=== PATIENT | female | born 1945 | race Caucasian/White ===

== ENCOUNTER 2018-12-01 07:49 | Inpatient (IN) | payer MEDICARE, OTHER ==
[~2018-12-01] VITALS: Ht 165.1 cm; Wt 50.8 kg
--- NOTE | ~2018-12-01 | OR ---
[facility] [address], [place] [address] Draft DATE OF OPERATION: 12/08/2018 SURGEON: Henny Gonzáles MD CHAPLAIN: Francis Rossi MD. PREOPERATIVE DIAGNOSIS: Cystocele and rectocele. POSTOPERATIVE DIAGNOSIS: Cystocele and rectocele with enterocele. PROCEDURES: A and P repair, enterocele repair, cystoscopy, sacrospinous cuff suspension. ANESTHESIA: General ET. ESTIMATED BLOOD LOSS: 200 mL. DRAINS: Girard catheter. PACKS: Vaginal. INDICATIONS AND FINDINGS: The patient is a 73-year-old female, 3, para 3, status post prior JENNA BSO, who has been having increasing issues with vaginal bulging and was found to have a cystocele as well as a rectocele. She was counseled and she desired surgical correction. At the time of surgery, she had a grade 2 cystocele and grade 2 rectocele. She had good perineal length. At the time of the cystocele repair, however, she was found to have also an enterocele. DESCRIPTION OF PROCEDURE: The patient was prepped and draped in the dorsal lithotomy position. A weighted speculum was placed and the anterior wall of the vagina was evaluated and Allis was replaced in the midline and an incision was made with a knife longitudinally. The PATIENT NAME: ALEXANDRE DUQUE OPERATIVE REPORT DATE OF : 41 REPORT #: [id number] PHYSICIAN: HENNY GONZÁLES MD PCP: YOANA MCKEON PA-C REPORT IS CONFIDENTIAL AND NOT TO BE RELEASED WITHOUT AUTHORIZATION [facility] [address], [place] [address] Draft vaginal mucosa was from the underlying tissue with a combination of blunt and sharp dissection. During this dissection, however, an enterocele sac was entered. An attempt was made to free the edges of the enterocele sac as much as possible. There did not appear to be any evidence of any bladder injury during that time. After freeing the enterocele sac as much as possible, this was closed with a pursestring suture of 2-0 chromic. The defect in the pubovesical fascia was reapproximated with interrupted sutures of 0 Vicryl. The vaginal mucosa was then trimmed a fair amount and the vaginal mucosa was then closed with a running suture of 2-0 Vicryl. Following this, the Girard catheter was removed and the cystoscope was used to evaluate the bladder. She had received IV fluorescein. The bladder was filled and no defects were noted. There was free spill of urine from both of the ureteral orifices. Following this, the bladder was drained and cystoscopy complete. The Girard catheter was replaced. Following this, the rectocele repair was begun. A triangle of tissue was removed from the perineal body with the knife. The vaginal mucosa was then undermined and incised in the midline near the apparent apex of the vagina. It was difficult to identify the cuff at this point. Following this, the vaginal mucosa was from the underlying tissue with a combination of blunt and sharp dissection. This was also carried out to the ischial spines on each side. The [employer] device was used to deploy a 0 Vicryl suture into the midportion of the sacrospinous ligament using a 0 Kistler-Irvin suture. This was left for use later. This was done bilaterally. Following this, this Kistler-Irvin suture was sutured on the one end to the apparent vaginal cuff. This was done bilaterally and these were tied down bilaterally, anchoring the top of the vagina to the sacrospinous ligaments on each side. Following this, interrupted sutures were placed in the perirectal fascial type tissue reapproximating that defect. Following this, a rectal examination was done and there were no sutures compromising the rectal lumen. FloSeal was then injected around the sacrospinous ligaments on each side to aid in hemostasis. The vaginal mucosa was then trimmed a small amount. The vaginal mucosa was closed with a running suture of 2-0 Vicryl. This was done from the apex of the vagina to the hymenal ring. The perineal body was reapproximated with interrupted sutures of 2-0 Vicryl. The posterior fourchette was recreated with the 2-0 Vicryl as well. The skin of the perineum was closed with subcuticular sutures of 3-0 Vicryl. Inspection of the vault showed good length and caliber. There was good hemostasis noted. The vaginal canal was then packed with Premarin coated gauze. All sponge and needle counts were correct. She tolerated procedure well and was taken to the recovery room in good condition. Henny Gonzáles MD PJW/MODL PATIENT NAME: ALEXANDRE DUQUE OPERATIVE REPORT DATE OF : 41 REPORT #: [id number] PHYSICIAN: HENNY GONZÁLES MD PCP: YOANA MCKEON PA-C REPORT IS CONFIDENTIAL AND NOT TO BE RELEASED WITHOUT AUTHORIZATION [address], [place] [address] Draft /[id number] cc: SAURAV Brya MD Copies: YOANA MCKEON PA-C, MICHAEL JOHN MD ~ PATIENT NAME: ALEXANDRE DUQUE OPERATIVE REPORT DATE OF : 41 REPORT #: [id number] PHYSICIAN: HENNY GONZÁLES MD PCP: YOANA MCKEON PA-C REPORT IS CONFIDENTIAL AND NOT TO BE RELEASED WITHOUT AUTHORIZATION
[~2018-12-01 07:49] MED LIST: ASPIR-LOW81 MG PO; BACITRACIN15 GM TP; BENADRYL25 MG PO; ENALAPRIL MALEA20 MG PO; EPIPEN 2-P0.3 MG/0.3 IM; FLAXSEED OIL1000 MG PO; MEVACOR40 MG PO; NORCO 5-325 TA1 EACH PO; OGEN0.75 MG PO; PREDNISONE20 MG PO; PREMARIN0.3 MG PO; PREMARIN0.625 MG PO; VISION VITAMIN1 EAC1 PO; VITAMIN D1000 UNI1 PO
[2018-12-02] MEDS ORDERED: ESTRACE0.5 MG PO (14:35)
--- NOTE | 2018-12-08 09:23 | NUR ---
12/08/18 0923 Danii Hyman 0911 PT ARRIVED IN PACU NON RESPONSIVE TO VERBAL/TACTILE STIMULI. OPA IN PLACE. 09 AT BEDSIDE. PT SLEEPING WITH OPA IN PLACE.
--- NOTE | 2018-12-08 10:00 | NUR ---
PT ARRIVED FROM PACU AT 0955. PT DROWSY BUT ALERT AND ORIENTED. PT ON ROOM AIR, LUNG SOUNSD CLEAR, DENIES SOB. PT WITH AREVALO CATH IN PLACE, DRAINING BRIGHT YELLOW URINE. PT WITH PERIPAD IN PLACE, SMALL AMOUNT OF BLOODY DRAINAGE, VAGINAL PACKING IN PLACE. PT DENIES PAIN. CMS INTACT, SCDS IN PLACE. DISCUSSED PLAN OF CARE FOR THE DAY AND WHAT TO EXPECT FOR RECOVERY. PT DENIES OTHER NEEDS AT THIS TIME. SPOUSE AT BEDSIDE.
--- NOTE | 2018-12-08 10:30 | NUR ---
PT COMPLAINT OF PAIN. PT DESCRIBING PAIN AN UNCOMFORTABLE PRESSURE IN HER VAGINA. DISCUSSED THAT VAGINAL PACKING CAN BE UNCOMFORTABLE, ICE PACK PROVIDED, HOB LOWERED TO DECREASE PRESSURE. PT DENIES OTHER NEEDS AT THIS TIME.
--- NOTE | 2018-12-08 11:05 | NUR ---
PT RESTING IN BED. PT RATING PAIN BETTER AFTER ICE PACK. VSS. PT PROVIDED ICE WATER, DENIES NAUSEA AT THIS TIME, DISCUSSED TO CALL RN IF BECOMING NAUSEATED. PT DENIES OTHER NEEDS AT THIS TIME.
--- NOTE | 2018-12-08 12:17 | NUR ---
PT RESTING IN BED. PT COMPLAINT OF NAUSEA, GIVEN 4MG IV ZOFRAN PER ORDER. VSS. PT RATING PAIN TOLERABLE 3/10 TO VAGINA. PERIPAD ASSESSED, WITHOUT NEW DRAINAGE. AREVALO CATH DRAINING QS. PT TOLERATING SIPS OF WATER, NOT INTERESTED IN CLEAR IQUID TRAY, PROVIDED SALTINE CRACKERS. PT DENIES OTHER NEEDS AT THIS TIME.
--- NOTE | 2018-12-08 13:04 | NUR ---
ASSESSMENT DONE. PATIENT RESTING IN BED, VSS, ON ROOM AIR. MARKIE PAD IN PLACE WITH SCAN RED DRAINAGE, AREVALO CATHETER INTACT WITH BRIGHT YELLOW URINE. PATIENT RATES MARKIE PAIN 5/10, PLAN TO GIVE MEDICATION FOR THIS. SCD'S ARE ON. IVF INFUSING TO INTACT IV IN LEFT WRIST. PATIENT IS TOLERATING SIPS OF CLEARS.
--- NOTE | 2018-12-08 14:50 | NUR ---
PT GIVEN SCHEDULED MOTRIN FOR CRAMPING.
--- NOTE | 2018-12-08 14:59 | NUR ---
PATIENT TOLERATING CLEAR LIQUIDS AND CRACKERS. IBUPROFEN GIVEN AFTER PATIENT WAS TAKING PO.
--- NOTE | 2018-12-08 16:57 | NUR ---
PATIENT GIVEN 2MG OF IV MORPHINE FOR 5/10 MARKIE PAIN. PATIENT DOES NOT HAVE AN APPETITE CURRENTLY. DISCUSSED WITH PATIENT THE POSSIBILITY OF SITTING ON THE EDGE OF THE BED TONIGHT, PLAN TO SEE IF PAIN MEDICATIONS MAKE PATIENT MORE COMFORTABLE. NO NAUSEA AT THIS TIME.
--- NOTE | 2018-12-08 18:43 | NUR ---
PATIENT SITTING ON SIDE OF BED, BECAME NAUSEATED, 4MG OF IV ZOFRAN GIVEN.
--- NOTE | 2018-12-08 20:54 | NUR ---
had 200cc of undigested food emesis. medicated with Phenergan 12.5mg IV. Cooperative with assessment.Very minimum ss vaginal drainage noted. vag pack inplace, f/c patent, draining clear yellow urine. Declines Motrin at this time, as her stomach does not feel good, states, will offer later, crackers at bedside, declines Jello due to food allergies. Repositioned in bed. Copx in place sats 94% on room air. SCDS in place, slow to respond but answers appropriately. Fresh water and call light at bedside, Hob elevated at her requests.
--- NOTE | 2018-12-08 22:43 | NUR ---
AWAKES EASILY, CONTINUES TO DECLINE MOTRIN "I HAVE NOT BEEN ABLE TO EAT ANYTHING, I SHOULD NOT HAVE IT, ISABEL OK". NO FURTHER EMESIS, ON ROOM AIR, VAG PACK INPLACE, SCANT AMOUNT OF SS DRAINGE, F/C IN PLACE. SCDS INPLACE, FLUID AND CALL LIGHT AT BEDSIDE. STATES COMFORTABLE
--- NOTE | 2018-12-09 00:34 | NUR ---
Reesting, eyes closed, no resp distress. IVF infusing, f/c patent. No further c/o n/v, Fluids and call light at bedside, scds inplace
--- NOTE | 2018-12-09 02:42 | NUR ---
Up to ambulate hallways. ambulated to safety doors and back to room, tolerated well, f/c patent. Medicated with [place] 1 tab vaginal poin. Tolerating crackers well, no further episodes of n/v. Fresh water given. Back to bed. tolerated well, scant amount of vaginal ss drainage noted in pad, changed. scds back on. IVf infusing w/o problems, call light at bedside
--- NOTE | 2018-12-09 04:55 | NUR ---
PT CURRENTLY RESTING, AWAKES EASILY. ON ROOM AIR. VAGINAL PACKING IN PLACE. SCANT AMOUNT OF LIGHT RED VAGINAL DRAINAGE NOTED. C/O ABD PAIN AND CRAMPING X1, WAS MEDICATGED WITH NORCO X1, EFFECTIVE. HAD EMESIS X1 WAS MEDICATED WITH PHENERGAN, NO FURTHER EMESIS. F/C PATENT, PT AWARE IT WILL BE DC'D THIS AM. PT WALKED OUTSIDE OF ROOM THIS SHIFT, TOLERATED WELL, 1PA. PT DIET IS AAT, TOLERATING CLEAR LIQUIDS AND CRACKERS, PT HAS MANY FOOD ALLERGIES AND IS VERY CAUTIONS ABOUT HER DIET. SCDS IN PLACE, IVF INFUSING W/O PROBLEMS. CALL LIGHT AND FLUIDS AT BEDSIDE
--- NOTE | 2018-12-09 06:05 | NUR ---
f/c dc'd at 0533. pt aware of needing to call nursing staff when she feels the urge to void and of need to do residual bladder scanning after each void, stated understanding. Vaginal pack inplace, very scant amount of light red vaginal discharge present. Tolerating crackers and water well. No further c/o n/v. had declined motrin earlier, took at this time w/o problems. Call lihgt and fluids at bedside
--- NOTE | 2018-12-09 07:20 | NUR ---
PT AAO IN ROOM. SBATO BATHROOM TO ATTEMPT TO VOID. PT UNSUCCESSFUL. DENIES PAIN. LR AT 125ML/HR INFUSING. DENIES NAUSEA/VOMITTING. CALL LIGHT IN REACH.
--- NOTE | 2018-12-09 09:30 | NUR ---
PT OUT TO AMBULATE IN DANIELLE BEFORE ATTEMPTING TO VOID.
--- NOTE | 2018-12-09 09:30 | NUR ---
ASSESSMENT COMPLETE. VISITING AT BEDSIDE. PATIENT VOIDED 300 ML WITH A POST VOID RESIDUAL OF 49 ML. PATIENT HAS SCANT AMOUNT OF OLD DISCHARGE ON PERIPAD. PATIENT SALINE LOCKED PER MD ORDER. PATIENT BOWEL SOUNDS HYPOACTIVE IN ALL 4 QUADRANTS, FLATULUS PASSED. LUNG SOUNDS CLEAR, HEART REGULAR. CALL LIGHT WITHIN REACH. PATIENT DENIES ANY N/V OR PAIN.
--- NOTE | 2018-12-09 12:07 | NUR ---
PATIENT SITTING UP IN BED EATING LUNCH. FAMILY VISITING IN ROOM WITH PATIENT. PATIENT DENIES ANY FURTHER NEEDS AT THIS TIME, CALL LIGHT WITHIN REACH.
--- NOTE | 2018-12-09 12:22 | NUR ---
PATIENT AMBULATED TO TOILET WITH 1 PERSON SBA. PATIENT VOIDED 300 MLS. POST RESIDUAL DOCUMENTED AT 481 MLS.
--- NOTE | 2018-12-09 13:40 | NUR ---
PATIENT AMBULATED TO TOILET AND VOIDED 500 MLS WITH A POST RESIDUAL VOID OF [address] CLARK CALLED AND UPDATED ON PATIENT'S POST VOID RESIDUALS. WILL CONTINUE TO MONITOR.
--- NOTE | 2018-12-09 16:24 | NUR ---
PATIENT AMBULATED TO TOILET, VOIDED 500 MLS. POST RESIDUAL VOID OF 146 MLS. PATIENT STATES SHE DOES NOT HAVE PAIN AFTER LAST PAIN MEDICATION. NEW PERIPAD APPLIED. PATIENT RESTING IN BED, CALL LIGHT WITHIN REACH.
--- NOTE | 2018-12-09 18:41 | NUR ---
POST OP PATIENT. MET ALL CRITERIA FOR D/C EXCEPT FOR POST VOID RESIDUALS. PLAN TO SPEND ONE MORE NIGHT. PAIN CONTROLLED WITH SCHEDULED NORCO AND MOTRIN. SCANT AMOUNT OF DRAINAGE, BOWEL TONES ACTIVE, PASSING FLATULENCE. NO BOWEL MOVEMENT TODAY, NO N/V. AMBULATED IN HALLS MULTIPLE TIMES. FLUIDS D/C, SALINE LOCKED, GOOD PO INTAKE.
--- NOTE | 2018-12-09 21:35 | NUR ---
coop with assessment, c/o 10 vaginal pain, scant amount of brown red vaginal drainage noted, Pt aware of continuation of residual bladder scanning after each void. Pt up to br at 1999, did not void, will get her up in 20 minutes at her requests to see if she can void, instructed on need to void at least every 2 hours, stated understanding. Medicated with scheduled Motrin. Call light and fluids at bedside, no c/o n/v this shift
--- NOTE | 2018-12-09 22:16 | NUR ---
PATIENT AMBULAYED TO THE BATHROOM WITH 1 P ASSIST,W/4WW. PATIENT VOIDED 200 CC BLADDER SCANED WAS ONLY 13 MG.
--- NOTE | 2018-12-09 23:22 | NUR ---
resting, eyes closed, no resp distress, on room air, call light and fluids at bedside, no c/o n/v this shift
--- NOTE | 2018-12-09 23:30 | NUR ---
Resting, no distress, wearing home CPAP. IVF infusing w/o problems. no c/o No further c/o n/v. Using call light appropriately. call light and fluids at bedside
--- NOTE | 2018-12-10 00:45 | NUR ---
Pt ambulating hallways using FWW, up to br, voided 150cc clear urine, bladder scanner showed 278cc residual. Pt instructed to void again after her walk and will be bladder scanned again, stated understanding
--- NOTE | 2018-12-10 04:43 | NUR ---
Awake at this time. COntinues to have over 100cc retaining urine when bladder scanner after each void this shift, Walked hallways x1 using walker. Tolerating diet well, No n/v this shift. No c/o pain, gets medicated with Motrin tid/scheduled with good pain relief. Scant amount of brown vaginal discharge noted in osmar pad. Pt does own care. Call light and fluids at bedside. Declined Heparin SQ earlier in shift
--- NOTE | 2018-12-10 07:45 | NUR ---
RECEIVED REPORT FROM RN. PATIENT SITTING IN BED WATCHING TV. PATIENT REPORTS SHE SLEPT "OKAY" AND IS NOT IN PAIN. ALERT AND ORIENTED. PATIENT IS SALINE LOCKED. WENT OVER PLAN OF CARE WITH PATIENT TO CONTROL PAIN, AMBULATE HALLS, AND WORK TOWARDS DECREASING POST VOID RESIDUALS. BREAKFAST ORDERED. PATIENT DENIES ANY FURTHER NEEDS AT THIS TIME. CALL LIGHT WITHIN REACH.
--- NOTE | 2018-12-10 08:10 | NUR ---
DR. CLARK IN ROOM WITH PATIENT DISCUSSING PLAN OF CARE. POST RESIDUAL VOIDS CONTINUED THROUGH THE NIGHT. PATIENT ATTEMPTED TO VOID UNSUCCESSFULLY, BLADDER SCAN SHOWED 550 MLS RETAINED. MD ORDERED AREVALO CATHETHER TO BE PLACED. PLAN IS TO DISCHARGE PATIENT WITH AREVALO AND LEG BACK. DISCUSSED IMPORTANCE OF MAINTAINING CONTROL OVER HER PAIN IN ORDER TO AMBULATE MORE FREQUENTLY, WHICH WILL HELP HER TO VOID. PATIENT STATES SHE IS HAVING NAUSEA AND A ZOFRAN WAS PROVIDED, WELL CRACKERS. PATIENT DENIES ANY FURTHER NEEDS, CALL LIGHT WITHIN REACH.
--- NOTE | 2018-12-10 08:50 | NUR ---
AREVALO CATHETER PLACED PER MD ORDER. PATIENT TOLERATED THE PROCEDURE WELL. 600 MLS OF URINE OUTPUT. WILL DISCUSS HOME AREVALO CATHETER CARE WITH PATIENT PRIOR TO DISCHARGE. BREAKFAST DELIVERED, IN ROOM VISITING. PATIENT DENIES ANY FURTHER NEEDS AT THIS TIME, CALL LIGHT WITHIN REACH.
[2018-12-10] MEDS ORDERED: IBUPROFEN800 MG PO (08:56)
[2018-12-10] MEDS ORDERED: NORCO 5-325 TA1 EACH PO (08:57)
[2018-12-10] MEDS ORDERED: ZOFRAN8 MG PO (08:58)
[2018-12-10] MEDS ORDERED: KONDREMUL2.5 ML/5 M PO (08:59)
[2018-12-10] MEDS ORDERED: EQL SENNA-S TA1 EACH PO (09:00)
--- NOTE | 2018-12-10 13:00 | NUR ---
PATIENT REPORTS PAIN OF 4/10, MOTRIN ADMINISTERED. DISCHARGE INFORMATION DISCUSSED WITH PATIENT AND . HOME CATHETER CARE DISCUSSED, INCLUDING HOW TO EMPTY THE CATHETER. PATIENT AND PERFORMED RETURN DEMONSTRATION OF HOW TO EMPTY THE CATHETER, WELL CLEAN THE CATHETER. PATIENT LEFT WITH LEG BAG AND AREVALO BAG. PATIENT AND PERFORMED RETURN DEMONSTRATION ON HOW TO SWITCH BETWEEN THE DIFFERENT BAGS. PATIENT VERBALIZED UNDERSTANDING OF WHEN TO CALL THE HOSPITAL. PATIENT LEFT WITH ALL HER BELONGINGS.
== END 2018-12-10 13:20 | disposition home or self-care (01) | DRG 747 ==
LOC: MS 12-08 05:45 → DSVR 12-08 05:45 → MS 12-08 06:45
PROVIDERS: ADMIT Obstetrics & Gynecology
PROC: 0USG0ZZ Reposition Vagina, Open Approach (ICD-10-PCS; 2018-12-08)
PROC: 0UQF0ZZ Repair Cul-de-sac, Open Approach (ICD-10-PCS; principal; 2018-12-08 06:45)
PROC: 0JQC0ZZ Repair Pelvic Region Subcutaneous Tissue and Fascia, Open Approach (ICD-10-PCS; 2018-12-08 06:45)
DX: N99.3 Prolapse of vaginal vault after hysterectomy (principal); J45.40 Moderate persistent asthma, uncomplicated; I10 Essential (primary) hypertension; E78.2 Mixed hyperlipidemia; G25.81 Restless legs syndrome; M19.90 Unspecified osteoarthritis, unspecified site; K59.00 Constipation, unspecified; Z88.1 Allergy status to other antibiotic agents; Z79.82 Long term (current) use of aspirin; Z79.899 Other long term (current) drug therapy
CPT/HCPCS: 00860; 36415; 51798; 80048; 85027; 94762; C1762; C2631; J0131; J0690; J1100; J1644; J1885; J2270; J2370; J2405; J2704; J3010; J7120

== ENCOUNTER 2020-01-31 07:50 | Day surgery (SDC) | payer MEDICARE, OTHER ==
[~2020-01-31] VITALS: Ht 165.1 cm; Wt 51.8 kg
[~2020-01-31 07:50] MED LIST changes: +EQL SENNA-S TA1 EACH PO; +ESTRACE0.5 MG PO; +FLOVENT DISKU100 MCG INH; +IBUPROFEN800 MG PO; +KONDREMUL2.5 ML/5 M PO; +LOVASTATIN40 MG PO; +MIRALAX17 GM PO; +VITAMIN D325 MC4 PO; +VOLTAREN ARTHRI20 GM TOP; +ZOFRAN8 MG PO
--- NOTE | 2020-01-31 09:48 | NUR ---
01/31/20 0948 Kennedi William 0936- PT TO PACU IN LL POSITION. EYES CLOSED. RESPONDS TO VERBAL AND TACTILE STIMULI. BREATHING EASY AND UNLABORED. SPO2 >95% ON 3 L O2 VIA NC. PT ENCOURAGED TO PASS GAS AND TAKE DEEP BREATHS. 0941- PT CONTINUES TO SLEEP IN LL POSITION. PT AWAKENS AGAIN WITH TACTILE AND VERBAL STIMULI. PT DENIES PAIN OR NAUSEA. BREATHING EASY AND UNLABORED. SPO2 >95% ON 3 L O2 VIA NC.
--- NOTE | 2020-02-01 06:29 | OR ---
[facility] [address], [place] [address] Signed DATE OF OPERATION: 01/31/2020 SURGEON: Shravan Leonard MD PREOPERATIVE DIAGNOSES: 1. Melanosis coli 2005. 2. Internal hemorrhoids. 3. History of constipation. 4. Remote hemorrhoidectomy. POSTOPERATIVE DIAGNOSIS: Unremarkable colonoscopy. PROCEDURE: Colonoscopy without biopsy. ESTIMATED BLOOD LOSS: None. INDICATIONS: Alexandre is a 74-year-old female, asked to see me for a followup colonoscopy. She had a colonoscopy in 2005 for change in bowel habits and constipation. Her biopsy showed melanosis coli and some internal hemorrhoids. She switched over to MiraLAX, has been doing wonderful since then. She has no family history of colon cancer or polyps. Her [id number] mother is still living with them. They normally go down to [place] every year, but because of the coronavirus, they held that off this year. Alexandre and her both remain in excellent shape. There is no family history of colon cancer or polyps. In the office, I gave her a pamphlet on colonoscopy and we had gone over that together in detail. She recalls the nature of that test quite well. She understands there is risk including, but not limited to gas bloating, crampy abdominal pain, bleeding, perforation requiring surgery, and missed diagnosis. We also reviewed the written instructions for the bowel prep line by line. She has done well with Versed and fentanyl in the past. She had expressed understanding and wished to proceed. PROCEDURE NOTE: Alexandre was taken into our endoscopy suite and placed in the left lateral decubitus position. She was given IV sedation with 5 mg of Versed and 100 mcg of fentanyl. A digital rectal exam was performed and her anus is just a little bit tight, had to slowly dilate it with my index finger, which is at least 1.5 cm in diameter. After this, the adult colonoscope was introduced and advanced all around into the cecum under direct Electronically Signed By: SHRAVAN LEONARD MD 02/01/20 0629 PATIENT NAME: ALEXANDRE DUQUE OPERATIVE REPORT DATE OF : 41 REPORT #: [id number] PHYSICIAN: SHRAVAN LEONARD MD PCP: YOANA MCKEON PA-C REPORT IS CONFIDENTIAL AND NOT TO BE RELEASED WITHOUT AUTHORIZATION [facility] [address] [place] [id number] Signed visualization of the camera. It took some abdominal compression, some additional sedation, and moving the scope back and forth to get through a loop in the left colon. Eventually, it straightened out and camera went right into the cecum itself. Her prep was quite excellent. We could easily see the appendiceal orifice and the ileocecal valve. The scope was slowly withdrawn. We took pictures throughout for photodocumentation. She had no pathology throughout the entire colon or rectum. We could see the previous polypectomy site up in the rectum, so we took a picture that for photodocumentation. Upon retroflexion of the scope, there was no additional pathology noted above the anal canal. After this, the gas was suctioned out and the colonoscope removed. Alexandre tolerated the procedure quite well. RECOMMENDATIONS: Alexandre is welcome to return in 10 years at age 84 for a followup screening colonoscopy. She remains in excellent health. We know her mother is 100 years old at this time. Shravan Leonard MD ALB/MODL /[id number] cc: SAURAV Bray MD Chart Filed Incomplete Copies: YOANA MCKEON PA-C, ANDREW L MD CHART FILED INCOMPLETE ~ Electronically Signed By: SHRAVAN LEONARD MD 02/01/20 0629 PATIENT NAME: ALEXANDRE DUQUE OPERATIVE REPORT DATE OF : 41 REPORT #: [id number] PHYSICIAN: SRHAVAN LEONARD MD PCP: YOANA MCKEON PA-C REPORT IS CONFIDENTIAL AND NOT TO BE RELEASED WITHOUT AUTHORIZATION
== END 2020-01-31 10:45 | disposition home or self-care (01) ==
LOC: DS 07:50 → OPS 07:50 → DS 09:00 → OPS 09:00
PROVIDERS: ATTEND Colon & Rectal Surgery
PROC: 0DJD8ZZ Inspection of Lower Intestinal Tract, Via Natural or Artificial Opening Endoscopic (ICD-10-PCS; principal; 2020-01-31 09:00)
DX: Z09 Encounter for follow-up examination after completed treatment for conditions other than malignant neoplasm (principal); I10 Essential (primary) hypertension; J45.909 Unspecified asthma, uncomplicated; E78.5 Hyperlipidemia, unspecified; Z98.890 Other specified postprocedural states; Z79.899 Other long term (current) drug therapy; Z79.82 Long term (current) use of aspirin; Z88.1 Allergy status to other antibiotic agents; Z91.048 Other nonmedicinal substance allergy status; Z91.018 Allergy to other foods; Z91.013 Allergy to seafood; Z88.8 Allergy status to other drugs, medicaments and biological substances
CPT/HCPCS: 99153; G0500; J2250; J3010; J7121